=== PATIENT | male | born 1990 | race Asian ===

== ENCOUNTER → 2024-07-28 | Outpatient (CLI) | payer OTHER, SELFPAY ==
[2024-07-28 18:16] LABS: Hepatitis B Surface Ab NonReact(Not Immune) (Immune); Hepatitis B Surface Antigen Non Reactive (Non React)
[2024-07-28 19:30] LABS: HIV (1&2) Antibody Rapid Non-Reactive
[2024-07-31 23:32] LABS: HCV RNA, PCR <15 NOT DETECTED IU/mL
[2024-08-01 06:30] LABS: HCV RNA, PCR Log IU <1.18 NOT DETECTED Log IU/mL
== END | disposition home or self-care (01) ==
PROVIDERS: PCP Hospitalist; Referring Provider Nurse Practitioner Family; Visit Provider Family Medicine
DX: Z77.21 Contact with and (suspected) exposure to potentially hazardous body fluids (principal)
CPT/HCPCS: 36415; 86703; 86706; 87340; 87522

== ENCOUNTER → 2024-09-05 | Outpatient (CLI) | payer OTHER, SELFPAY ==
[2024-09-05 09:01] LABS: Hepatitis B Surface Antigen Non Reactive (Non React)
[2024-09-05 11:52] LABS: HIV (1&2) Antibody Rapid Non-Reactive
[2024-09-07 23:35] LABS: HCV RNA, PCR <15 NOT DETECTED IU/mL
[2024-09-08 06:49] LABS: HCV RNA, PCR Log IU <1.18 NOT DETECTED Log IU/mL
== END | disposition home or self-care (01) ==
LOC: COPL 07:21
PROVIDERS: PCP Hospitalist; Referring Provider Family Medicine; Visit Provider Nurse Practitioner Family
DX: Z04.2 Encounter for examination and observation following work accident (principal); Z77.21 Contact with and (suspected) exposure to potentially hazardous body fluids; W46.1XXA Contact with contaminated hypodermic needle, initial encounter
CPT/HCPCS: 36415; 86703; 87340; 87522

== ENCOUNTER → 2024-10-13 | Outpatient (CLI) | payer OTHER, SELFPAY ==
[2024-10-13 09:11] LABS: Hepatitis B Surface Antigen Non Reactive (Non React)
[2024-10-13 09:26] LABS: HIV (1&2) Antibody Rapid Non-Reactive
[2024-10-15 08:47] LABS: HCV RNA, PCR <15 NOT DETECTED IU/mL
[2024-10-16 06:31] LABS: HCV RNA, PCR Log IU <1.18 NOT DETECTED Log IU/mL
== END | disposition home or self-care (01) ==
PROVIDERS: PCP Family Medicine; Referring Provider Family Medicine; Visit Provider Family Medicine
DX: Z01.89 Encounter for other specified special examinations (principal)
CPT/HCPCS: 36415; 86703; 87340; 87522

== ENCOUNTER → 2024-12-02 | Outpatient (CLI) | payer OTHER, SELFPAY ==
[2024-12-02 12:50] LABS: Hepatitis B Surface Antigen Non Reactive (Non React)
[2024-12-02 13:04] LABS: HIV (1&2) Antibody Rapid Non-Reactive
[2024-12-05 22:05] LABS: HCV RNA, PCR <15 NOT DETECTED IU/mL
[2024-12-08 09:32] LABS: HCV RNA, PCR Log IU <1.18 NOT DETECTED Log IU/mL
== END | disposition home or self-care (01) ==
LOC: COPL 11:02
PROVIDERS: Referring Provider Nurse Practitioner Family; Visit Provider Nurse Practitioner Family
DX: Z77.21 Contact with and (suspected) exposure to potentially hazardous body fluids (principal)
CPT/HCPCS: 36415; 86703; 87340; 87522

== ENCOUNTER → 2025-01-19 | Outpatient (CLI) | payer OTHER, SELFPAY ==
[2025-01-19 09:20] LABS: Hepatitis B Surface Antigen Non Reactive (Non React)
[2025-01-19 10:01] LABS: HIV (1&2) Antibody Rapid Non-Reactive
[2025-01-20 22:04] LABS: HCV RNA, PCR <15 NOT DETECTED IU/mL
[2025-01-21 06:33] LABS: HCV RNA, PCR Log IU <1.18 NOT DETECTED Log IU/mL
== END | disposition home or self-care (01) ==
LOC: COPL 07:16
PROVIDERS: PCP Nurse Practitioner Family; Referring Provider Nurse Practitioner Family; Visit Provider Nurse Practitioner Family
DX: Z77.21 Contact with and (suspected) exposure to potentially hazardous body fluids (principal); W46.1XXD Contact with contaminated hypodermic needle, subsequent encounter
CPT/HCPCS: 36415; 86703; 87340; 87522

== ENCOUNTER → 2025-02-11 | Outpatient (CLI) | payer OTHER, SELFPAY ==
[2025-02-11 08:47] LABS: Hepatitis B Surface Ab Reactive (Immune) (Immune)
== END | disposition home or self-care (01) ==
LOC: COPL 07:30
PROVIDERS: PCP Hospitalist; Referring Provider Physician Assistant; Visit Provider Physician Assistant
DX: Z77.21 Contact with and (suspected) exposure to potentially hazardous body fluids (principal)
CPT/HCPCS: 36415; 86706

== ENCOUNTER → 2025-02-25 | Outpatient (CLI) | payer OTHER, SELFPAY ==
[2025-02-25 12:33] LABS: HIV (1&2) Antibody Rapid Non-Reactive
[2025-02-27 17:51] LABS: HCV RNA, PCR <15 NOT DETECTED IU/mL
[2025-03-02 07:17] LABS: HCV RNA, PCR Log IU <1.18 NOT DETECTED Log IU/mL
== END | disposition home or self-care (01) ==
LOC: COPL 08:51
PROVIDERS: Referring Provider Nurse Practitioner Family; Visit Provider Nurse Practitioner Family
DX: Z77.21 Contact with and (suspected) exposure to potentially hazardous body fluids (principal)
CPT/HCPCS: 36415; 86703; 87522